=== PATIENT | female | born 1980 | race Caucasian/White ===

== ENCOUNTER → 2020-10-10 | Outpatient (CLI) | payer BC ==
[2014-07-01 10:50] VITALS: BP 164/77
[~2020-10-10] MED LIST: CETI10TA74 PO; LORA10TA68 PO; MULT-445 PO
--- NOTE | 2020-10-10 14:56 | RAD ---
EXAM: PA and Lateral Views of the Chest DATE: 10/10/2020 11:09 AM INDICATION: Reason: COUGH / Spl. Instructions: / History: COMPARISON: No Prior FINDINGS: The heart is not enlarged. Mediastinal and hilar contours are normal. No focal parenchymal airspace opacity. No pleural effusion or pneumothorax. IMPRESSION: 1. No radiographic evidence for acute cardiopulmonary process. Electronically signed by: Felice Rivers MD (10/10/2020 2:54 PM) [id number]
== END ==
LOC: RAD 10:44
PROVIDERS: ATTEND Family Medicine
DX: R05 Cough (principal)
CPT/HCPCS: 71046